=== PATIENT | female | born 1985 | race Hispanic/Latino ===

== ENCOUNTER 2017-11-28 15:48 | Emergency (ER) | payer MEDICAID, OTHER ==
[2017-11-28 15:58] VITALS: BP 146/91; PULSE 77; RESP 20; TEMP 98.3; O2SAT 99
--- NOTE | 2017-11-28 16:08 | ED PDOC ---
HPI: Dental Pain/Injury Time Seen by Provider: 11/28/17 16:00 Chief Complaint (Nursing): Dental Pain Chief Complaint (Provider): Dental Pain History Per: Patient History/Exam Limitations: no limitations Onset/Duration Of Symptoms: Days Current Symptoms Are (Timing): Still Present Additional Complaint(s): 32 year old female presents to the emergency department with a complaint of a dental pain x2 days associated with swelling. Located to the left upper tooth region. States she ate a piece of pizza and believes there is definitely an abscess to the tooth. Reports alternating between Ibuprofen and Tylenol every 4- 6 hours without relief. Denies trauma, fever or any further medical complaints. Past Medical History Reviewed: Historical Data, Nursing Documentation, Vital Signs Vital Signs: Last Vital Signs Temp 98.3 F 11/28/17 15:54 Pulse 77 11/28/17 15:54 Resp 20 11/28/17 15:54 BP 146/91 H 11/28/17 15:54 Pulse Ox 99 11/28/17 15:54 - Medical History PMH: No Chronic Diseases - Surgical History Surgical History: No Surg Hx - Family History Family History: States: No Known Family Hx - Social History Current smoker - smoking cessation education provided: No Alcohol: None Drugs: Denies - Home Medications Home Medications: Ambulatory Orders Medication Instructions Recorded Amoxicillin/Potassium Clav 1 tab PO BID #20 tab 11/28/17 [Augmentin 500 mg-125 mg] Naproxen [Naprosyn] 500 mg PO BID PRN #10 tab 11/28/17 - Allergies Allergies/Adverse Reactions: Allergies Allergy/AdvReac Type Severity Reaction Status Date / Time No Known Allergies Allergy Verified 11/28/17 15:53 Review of Systems ROS Statement: Except As Marked, All Systems Reviewed And Found Negative (As per HPI, otherwise negative) Constitutional: Negative for: Fever, Other (Trauma) ENT: Positive for: Other (left upper tooth ache with swelling) Physical Exam - Reviewed Nursing Documentation Reviewed: Yes Vital Signs Reviewed: Yes - Physical Exam Appears: Positive for: Well, No Acute Distress Head Exam: Positive for: ATRAUMATIC, NORMAL INSPECTION, NORMOCEPHALIC Skin: Positive for: Normal Color, Warm, Dry ENT: Positive for: Other (Left periapical area and maxillary portion of mouth with gingival swelling and tenderness. ). Negative for: Normal ENT Inspection ( Negative trench mouth) Neurologic/Psych: Positive for: Alert, Oriented (x3) - Laboratory Results Urine POC: Negative - ECG O2 Sat by Pulse Oximetry: 99 (RA) Pulse Ox Interpretation: Normal Medical Decision Making Medical Decision Making: Time: 1608 Initial impression: Dental pain Initial plan: Urine Preg Toradol 30 mg IM Reevaluation Time: 1614 Patient is medically clear for discharge and given Rx for Augmentin 500mg- 125mg and Naproxen 500 mg. Advised to follow up with dentist for further evaluation. Clinical Impression: Dental abscess Scribe Attestation: Documented by Francia Cabrales, acting as a scribe for Calin Martinez PA-C. Provider Scribe Attestation: All medical record entries made by the Scribe were at my direction and personally dictated by me. I have reviewed the chart and agree that the record accurately reflects my personal performance of the history, physical exam, medical decision making, and the department course for this patient. I have also personally directed, reviewed, and agree with the discharge instructions and disposition. Disposition - Clinical Impression Clinical Impression: Dental abscess - Patient ED Disposition Is Patient to be Admitted: No Counseled Patient/Family Regarding: Diagnosis, Need For Followup, Rx Given - Disposition Referrals: [facility] [Outside] Disposition: Routine/Home Disposition Time: 16:14 Condition: IMPROVED Additional Instructions: Follow up with dentist for further evaluation. Return to ED immediately if symptoms worsen. Prescriptions: Amoxicillin/Potassium Clav [Augmentin 500 mg-125 mg] 1 tab PO BID #20 tab Naproxen [Naprosyn] 500 mg PO BID PRN #10 tab PRN Reason: Pain Instructions: Tooth Abscess (DC) Forms: [employer] (Tongan), [facility] ED School/Work Excuse Print Language: TURKISH
== END 2017-11-28 17:06 | disposition home or self-care (01) ==
LOC: H.ER 15:48 → SUPCPDRO 15:48 → H.ER 17:06
DX: K04.7 Periapical abscess without sinus (principal)
CPT/HCPCS: 81025; 96372; 99282; J1885

== ENCOUNTER 2018-01-31 12:48 | Emergency (ER) | payer MEDICAID, OTHER ==
[2018-01-31 13:05] VITALS: BP 131/91; PULSE 95; RESP 16; TEMP 99; O2SAT 100
[2018-01-31] MEDS ORDERED: Tmp-Smz 800 mg-160 mg DS Tab PO STA (13:28)
[2018-01-31] MEDS ORDERED: Oxycodone/Acetaminophen 5/325 mg Tab PO STA (13:58)
--- NOTE | 2018-01-31 13:58 | ED PDOC ---
HPI: Wound Care - HPI Time Seen by Provider: 01/31/18 12:51 Chief Complaint (Nursing): Abnormal Skin Integrity Chief Complaint (Provider): Abscess History Per: Patient Exam Limitations: no limitations Onset/Duration Of Symptoms: Days (x2 weeks) Current Symptoms Are (Timing): Still Present Additional Complaint(s): 32 year old female presents to the ED for evaluation of an abscess to her left forearm progressively worsening over the past two weeks. Patient reports being seen and evaluated at [facility] last night, and states that while they wanted to admit her, they were unable to get IV access after multiple attempts, so patient presumably eloped after given bactrim and percocet. Today, she notes putting a hot compress on the abscess, bursting it with drainage. She presents today specifically to have an I&D, but is refusing IV access. Since last night, she reports the site has improved. Otherwise, pt denies fever and chills. PMD: none provided Past Medical History Reviewed: Historical Data, Nursing Documentation, Vital Signs Vital Signs: Last Vital Signs Temp 99.0 F 01/31/18 13:01 Pulse 95 H 01/31/18 13:01 Resp 16 01/31/18 13:01 BP 131/91 H 01/31/18 13:01 Pulse Ox 100 01/31/18 13:01 - Medical History PMH: No Chronic Diseases - Surgical History Surgical History: No Surg Hx - Family History Family History: States: Unknown Family Hx - Social History Drugs: Other (heroin intravenous, last time using x1 month ago) - Home Medications Home Medications: Ambulatory Orders Medication Instructions Recorded Amoxicillin/Potassium Clav 1 tab PO BID #20 tab 11/28/17 [Augmentin 500 mg-125 mg] Naproxen [Naprosyn] 500 mg PO BID PRN #10 tab 11/28/17 Cephalexin [cephalexin] 500 mg PO BID #14 cap 01/31/18 Ibuprofen [Motrin] 600 mg PO Q6 #20 tab 01/31/18 Sulfamethoxazole/Trimethoprim 1 tab PO BID 5 Days tab 01/31/18 [Bactrim DS 800 mg-160 mg] oxyCODONE/Acetaminophen [Percocet 1 ea PO Q6 PRN #5 tab 01/31/18 5/325 mg Tab] - Allergies Allergies/Adverse Reactions: Allergies Allergy/AdvReac Type Severity Reaction Status Date / Time No Known Allergies Allergy Verified 11/28/17 15:53 Review of Systems ROS Statement: Except As Marked, All Systems Reviewed And Found Negative Constitutional: Negative for: Fever, Chills Skin: Positive for: Other (abscess to left forearm) Physical Exam - Reviewed Nursing Documentation Reviewed: Yes Vital Signs Reviewed: Yes - Physical Exam Appears: Positive for: No Acute Distress Skin: Positive for: Warm, Dry Eye Exam: Positive for: Normal appearance Cardiovascular/Chest: Positive for: Regular Rate, Rhythm Respiratory: Positive for: Normal Breath Sounds. Negative for: Accessory Muscle Use, Respiratory Distress Pulses-Radial (L): 2+ Extremity: Positive for: Normal ROM (full rom to wrist and elbow), Other (20cm area of erythema, centralized area of scabbing and actively draining mix of blood and purulent material roughly 6cm in diameter, positive induration, no fluctuance; distal sensation intact) Neurologic/Psych: Positive for: Alert, Oriented (x3). Negative for: Motor/ Sensory Deficits - ECG O2 Sat by Pulse Oximetry: 100 (RA) Pulse Ox Interpretation: Normal Medical Decision Making Medical Decision Making: Time: 1327 Initial Impression: abscess, wound care Initial Plan: --US LUE --Wound culture --Keflex 500 mg PO --Bactrim 1 tab PO At this time, patient was advised to agree to admission, as well as a surgical consult, but she refused. She was also advised to allow for IV access for antibiotics, but also refused this, requesting them to be oral. US results discussed with Pt who demonstrated full understanding. Site continues to produce mix of blood and purulent material. Advised to continue on antibiotic therapy and follow up with [facility] to ED if at anytime condition worsens. Scribe Attestation: Documented by Emily Salas, acting as a scribe for Wendy Petronella, PA-C. Provider Scribe Attestation: All medical record entries made by the Scribe were at my direction and personally dictated by me. I have reviewed the chart and agree that the record accurately reflects my personal performance of the history, physical exam, medical decision making, and the department course for this patient. I have also personally directed, reviewed, and agree with the discharge instructions and disposition. Disposition - Clinical Impression Clinical Impression: Abscess - Disposition Disposition: Routine/Home Disposition Time: 14:55 Condition: STABLE Prescriptions: Cephalexin [cephalexin] 500 mg PO BID #14 cap Ibuprofen [Motrin] 600 mg PO Q6 #20 tab oxyCODONE/Acetaminophen [Percocet 5/325 mg Tab] 1 ea PO Q6 PRN #5 tab PRN Reason: Pain, Severe (8-10) Sulfamethoxazole/Trimethoprim [Bactrim DS 800 mg-160 mg] 1 tab PO BID 5 Days tab Instructions: Skin Abscess Forms: [employer] (Egyptian)
[2018-01-31] MEDS ORDERED: Oxycodone/Acetaminophen 5/325 mg Tab ONE (14:03)
--- NOTE | 2018-01-31 16:49 | US ---
Date of service: 01/31/2018 PROCEDURE: HISTORY: Left forearm, ssess fluid collection COMPARISON: None TECHNIQUE: Standard protocol FINDINGS: There is a skin thickening and subcutaneous edema present. The area of concern is along the left forearm just below the antecubital fossa here there is a ill-defined hypoechoic nonspecific area may represent the residual collection of some form- septic an aseptic collections are compatible with this. It is very small in size measuring only 1.5 x 0.5 x 1.5 cm. IMPRESSION: Extensive dermal and subcutaneous edema with a nonspecific hypoechoic nonvascular non shadowing focus compatible with a nonspecific collection - the sterility of this collection is not known- does not appear particularly large in terms of drainage requirements. It only and measuring 1.5 x 0.5 x 1.5 cm. Clinical follow-up recommended
== END 2018-01-31 14:55 | disposition home or self-care (01) ==
LOC: H.ER 12:48
DX: L02.414 Cutaneous abscess of left upper limb (principal)